=== PATIENT | male | born 1965 | race Caucasian/White ===

== ENCOUNTER 2017-10-29 10:10 | Emergency (ER) | payer SELFPAY ==
[2017-10-29 10:26] VITALS: BP 149/93
[2017-10-29] MEDS ORDERED: Tetracaine 0.5% OPTH.SOL 15ML* BTL ONE (10:31)
[2017-10-29] MEDS ORDERED: Tetracaine 0.5% OPTH.SOL 4 ML* 1 DROP BTL RIGHT EYE ONE (10:40)
--- NOTE | 2017-10-29 11:53 | UC ---
Jaylene Gaxiola Gabriel, scribed for Frankie Stevens MD on 10/29/17 at 1021 . Eye Complaint HPI - HPI Summary HPI Summary: This patient is a 51 year old M presenting to [facility] after he got some biocide in his right eye at work [employer]. Biocide is a corruptive alkaline substance. He immediately felt a burning sensation and he began washing his eye with water for 15 minutes. Right now there is small irritation but no pain or blurred vision. The patient rates the pain 2/10 in severity. Poison control was contacted and they suggest an hour of irrigation and possibly a Severino lense. They also suggest a visual acuity test and a pH test before and after flushing. There should also be a fluorescence stain done on the eye. 20/20 in both eyes Ph 6-5.7 - History of Current Complaint Chief Complaint: UCEye Stated Complaint: EYE INJURY Hx Obtained From: Patient Onset/Duration: Lasting Minutes, Still Present Timing: Constant Severity Initially: Moderate Severity Currently: Moderate Pain Intensity: 5 Pain Scale Used: 0-10 Numeric - Allergies/Home Medications Allergies/Adverse Reactions: Allergies Allergy/AdvReac Type Severity Reaction Status Date / Time Penicillins Allergy Unknown Verified 10/29/17 10:22 Reaction Details PMH/Surg Hx/FS Hx/Imm Hx Other History Of: Negative For: Hepatitis C, Anticoagulant Therapy - Surgical History Surgical History: Yes Surgery Procedure, Year, and Place: thyroidectomy. left knee. left ankle - Family History Known Family History: Negative: Renal Disease, Respiratory Disease - Social History Alcohol Use: Daily Alcohol Amount: one/ day Substance Use Type: None Smoking Status (MU): Never Smoked Tobacco Have You Smoked in the Last Year: No Review of Systems Constitutional: Negative - fever Eyes: Negative - blurred vision, Eye Redness, Other - eye pain All Other Systems Reviewed And Are Negative: Yes Physical Exam - Summary Physical Exam Summary: VITAL SIGNS: Reviewed. GENERAL: Patient is a well-developed and nourished male who is lying comfortable in the stretcher. Patient is not in any acute respiratory distress. HEAD AND FACE: Normocephalic EYES: PERRLA, EOMI x 2. Conjunctival injection EARS: Hearing grossly intact. MOUTH: Oropharynx within normal limits. NECK: Supple, trachea is midline, no adenopathy, no JVD, no carotid bruit. CHEST: Symmetric, no tenderness at palpation LUNGS: Clear to auscultation bilaterally. No wheezing or crackles. CVS: Regular rate and rhythm, S1 and S2 present, no murmurs or gallops appreciated. ABDOMEN: Soft, non-tender. Bowel sounds are normal. No abdominal abnormal pulsations. EXTREMITIES: Full ROM in all major joints, no edema, no cyanosis or clubbing. NEURO: Alert and oriented x 3. No acute neurological deficits. Speech is normal and follows commands. SKIN: Dry and warm Triage Information Reviewed: Yes Vital Signs: Initial Vital Signs Temp 97.9 F 10/29/17 10:19 Pulse 64 10/29/17 10:19 Resp 18 10/29/17 10:19 BP 149/93 10/29/17 10:19 Pulse Ox 100 10/29/17 10:19 Vital Signs Reviewed: Yes Re-Evaluation - Re-Evaluation First Eval Re-Evaluation Time: 11:48 Change: Improved Comment: The pH is now 7 after the flush. Eye Complaint Course/Dx - Course Course Of Treatment: I irrigated and then I put a Severino lens as instructed by poison control. The pH after the irrigation it was 7-7.5. The patient denies any blurred vision, denies any double vision or any eye discomfort. Therefore the patient will be discharged home with follow-up with ophthalmology. Patient was instructed to order the ER if he develops any pain, palpation or any other symptoms. The patient understands and agrees. All his concerns were addressed and she has no other questions. Patient is hemodynamically stable alert oriented 3 - Differential Dx/Diagnosis Provider Diagnoses: Eye irritation Discharge - Sign-Out/Discharge Documenting (check all that apply): Discharge/Admit/Transfer - Discharge Plan Condition: Stable Disposition: HOME Patient Education Materials: Eye Wash (Into the eye) Referrals: Pedro Gutierrez MD [Primary Care Provider] - Yvon Rodriguez MD [Medical Doctor] - 2 Days Additional Instructions: Patient will be discharged home with f/u of Ophthalmology. - Billing Disposition and Condition Condition: STABLE Disposition: HOME The documentation as recorded by the Jaylene zamudio Gabriel accurately reflects the service I personally performed and the decisions made by , Frankie Stevens MD.
== END 2017-10-29 12:02 | disposition home or self-care (01) ==
LOC: UCEAST 10:10
DX: H57.8 Other specified disorders of eye and adnexa (principal); Z88.0 Allergy status to penicillin
CPT/HCPCS: 99203; A9270-GY; G0463